=== PATIENT | male | born 1945 | race Caucasian/White ===

== ENCOUNTER 2019-06-08 06:26 | Day surgery (SDC) | payer MEDICARE, OTHER ==
[~2019-06-08 06:26] MED LIST: DORZOLAMIDE HCL 2%/TIMOLOL MALEAT 0.5% OPH SOLN 10 ML OS PRN; KETOROLAC TROMETHAMINE 0.45% 4 DROP/0.4 ML DROPERETTE OS PRN
[2019-06-08] MEDS ORDERED: MIDAZOLAM 2 MG/2 ML INJ ONE (06:35)
[2019-06-08] MEDS ORDERED: FENTANYL CITRATE INJ/PF 100 MCG/2 ML AMPUL ONE (06:35)
[2019-06-08] MEDS: TROPICAMIDE 1% OPH SOLN 15 ML OS PRN ×3 (06:50→07:15)
[2019-06-08] MEDS: TETRACAINE HCL 0.5% OPH SOLN 4 ML OS PRN ×3 (06:50→07:27)
[2019-06-08] MEDS: CYCLOPENTOLATE 0.2%/PHENYLEPHRINE 1% OPH SOLN 2 ML OS PRN ×3 (06:51→07:15)
[2019-06-08] MEDS: BESIFLOXACIN HCL 0.6% OPH SUSP 5 ML BOTTLE OS PRN ×3 (06:51→07:52)
[2019-06-08] MEDS ORDERED: EPINEPHRINE INJ/PF 1 MG/1 ML AMPULE ONE (07:05)
[2019-06-08] MEDS ORDERED: LIDOCAINE 1% INJ-PF (10 MG/ML) 30 ML SDV ONE (07:05)
[2019-06-08] MEDS ORDERED: TOBRAMYCIN SULFATE/DEXAMETH OPH OINTMENT 3.5 GM ONE (07:05)
[2019-06-08] MEDS ORDERED: CHONDR SU A NA/HYALUR INTRAOC KIT (SURGICARE) ONE (07:06)
== END 2019-06-08 08:28 | disposition home or self-care (01) ==
LOC: SC 06:26
PROVIDERS: ATTEND Ophthalmology
DX: H25.12 Age-related nuclear cataract, left eye (principal); Z79.82 Long term (current) use of aspirin; Z79.899 Other long term (current) drug therapy; I10 Essential (primary) hypertension; E78.00 Pure hypercholesterolemia, unspecified; I25.2 Old myocardial infarction
CPT/HCPCS: 66984; 00142; J2250; J3490 ×3; A9270 ×2; J0171; J3010; 142

== ENCOUNTER 2019-06-29 06:26 | Day surgery (SDC) | payer MEDICARE, OTHER ==
[~2019-06-29 06:26] MED LIST changes: +DORZOLAMIDE HCL 2%/TIMOLOL MALEAT 0.5% OPH SOLN 10 ML OD PRN; -DORZOLAMIDE HCL 2%/TIMOLOL MALEAT 0.5% OPH SOLN 10 ML OS PRN; +KETOROLAC TROMETHAMINE 0.45% 4 DROP/0.4 ML DROPERETTE OD PRN; -KETOROLAC TROMETHAMINE 0.45% 4 DROP/0.4 ML DROPERETTE OS PRN
[2019-06-29] MEDS: BESIFLOXACIN HCL 0.6% OPH SUSP 5 ML BOTTLE OD PRN ×3 (06:55→08:12)
[2019-06-29] MEDS: CYCLOPENTOLATE 0.2%/PHENYLEPHRINE 1% OPH SOLN 2 ML OD PRN ×3 (06:55→07:20)
[2019-06-29] MEDS: TETRACAINE HCL 0.5% OPH SOLN 4 ML OD PRN ×3 (06:55→07:46)
[2019-06-29] MEDS: TROPICAMIDE 1% OPH SOLN 15 ML OD PRN ×3 (06:55→07:20)
[2019-06-29] MEDS ORDERED: TOBRAMYCIN SULFATE/DEXAMETH OPH OINTMENT 3.5 GM ONE (07:16)
[2019-06-29] MEDS ORDERED: LIDOCAINE 1% INJ-PF (10 MG/ML) 30 ML SDV ONE (07:16)
[2019-06-29] MEDS ORDERED: CHONDR SU A NA/HYALUR INTRAOC KIT (SURGICARE) ONE (07:16)
[2019-06-29] MEDS ORDERED: EPINEPHRINE INJ/PF 1 MG/1 ML AMPULE ONE (07:16)
[2019-06-29] MEDS ORDERED: LIDOCAINE 1%/PHENYLEPHRINE 1.5% 1 ML VIAL ONE (07:25)
[2019-06-29] MEDS ORDERED: MIDAZOLAM 2 MG/2 ML INJ ONE ×2 (07:52→08:07)
== END 2019-06-29 08:49 | disposition home or self-care (01) ==
LOC: SC 06:26
PROVIDERS: ATTEND Ophthalmology
DX: H25.11 Age-related nuclear cataract, right eye (principal); Z98.42 Cataract extraction status, left eye; I10 Essential (primary) hypertension; E78.00 Pure hypercholesterolemia, unspecified; I25.2 Old myocardial infarction; Z79.82 Long term (current) use of aspirin; Z79.899 Other long term (current) drug therapy
CPT/HCPCS: 66984; 00142; V2632; J2250; J3490 ×2; A9270 ×2; J0171; J2370; 142